=== PATIENT | female | born 1970 | race African-American/Black ===

== ENCOUNTER 2019-12-16 12:13 | Emergency (ER) | payer OTHER ==
[~2019-12-16] VITALS: Ht 167.6 cm; Wt 134.1 kg
[~2019-12-16 12:13] MED LIST: AMOX500T2 PO; FERR-89 PO; LOSA25TA71 PO
[2019-12-16] MEDS ORDERED: KETOROLAC TROMETHAMINE 60 MG/2 ML VIAL IM ONE (13:45)
[2019-12-16 15:19] VITALS: BP 132/81
== END 2019-12-16 15:31 | disposition home or self-care (01) ==
LOC: EMS 12:14
DX: M25.562 Pain in left knee (principal); I10 Essential (primary) hypertension
CPT/HCPCS: 73562; 81025; 96372; 99283; J1885

== ENCOUNTER 2020-10-19 13:24 | Emergency (ER) | payer OTHER ==
[~2020-10-19] VITALS: Ht 167.6 cm; Wt 151.8 kg
[~2020-10-19 13:24] MED LIST changes: +LOSA25TA21 PO; -LOSA25TA71 PO
[2020-10-19] MEDS ORDERED: KETOROLAC TROMETHAMINE 30 MG/ML VIAL IM ONE (15:00)
[2020-10-19 16:19] VITALS: BP 182/96
== END 2020-10-19 16:38 | disposition home or self-care (01) ==
LOC: EMS 13:28
DX: M13.862 Other specified arthritis, left knee (principal); I10 Essential (primary) hypertension
CPT/HCPCS: 73562; 96372; 99283; J1885

== ENCOUNTER 2021-10-03 15:52 | Emergency (ER) | payer OTHER ==
[~2021-10-03] VITALS: Ht 165.1 cm; Wt 136.4 kg
[~2021-10-03 15:52] MED LIST changes: +LOSA-381 PO; -LOSA25TA21 PO
[2021-10-03] MEDS ORDERED: GABA-1216 PO (16:07)
[2021-10-03] MEDS ORDERED: CHOL-35 PO (16:09)
[2021-10-03 17:51] LABS: NEUTROPHILS # (AUTO) 5.1 K/uL (1.8-7.7)
[2021-10-03 17:51] LABS: APPEARANCE,URINE CLEAR (CLEAR); BILIRUBIN,URINE NEGATIVE (NEGATIVE); GLUCOSE, URINE (UA) NEGATIVE (NEGATIVE); KETONES,URINE NEGATIVE (NEGATIVE); LEUKOCYTE ESTERASE ,URINE NEGATIVE (NEGATIVE); NITRATE,URINE NEGATIVE (NEGATIVE); OCCULT BLOOD,URINE NEGATIVE (NEGATIVE); PROTEIN,URINE NEGATIVE (NEGATIVE); SPECIFIC GRAVITIY, URINE 1.021 (1.003-1.030)
[2021-10-03 17:54] LABS: BASOPHILS % (AUTO) 0.7 % (0.0-2.0); EOSINOPHILS % (AUTO) 1.4 % (1.0-6.0); HEMATOCRIT 30.8 % (36-46); HEMOGLOBIN 9.7 g/dL (12.0-16.0); LYMPHOCYTES # (AUTO) 2.4 K/uL (1.0-4.8); LYMPHOCYTES % (AUTO) 29.5 % (22.0-44.0); MEAN CORPUSCULAR HEMOGLOBIN 21.8 pg (26.0-34.0); MEAN CORPUSCULAR HGB CONC 31.4 G/dL (31.0-37.0); MEAN CORPUSCULAR VOLUME 69 fL (80-100); MONOCYTES # (AUTO) 0.5 K/uL (0.1-1.0); MONOCYTES % (AUTO) 5.9 % (2.0-9.0); NEUTROPHILS % (AUTO) 62.5 % (40.0-70.0); RED BLOOD CELL COUNT(AUTO) 4.44 MIL/uL (4.00-5.20); RED CELL DISTRIBUTION WIDTH 32.2 % (11.5-14.5)
[2021-10-03 17:59] LABS: ANION GAP 8 mmol/L (8-16); CALCIUM, TOTAL 9.2 mg/dL (8.8-10.5); CARBON DIOXIDE 31 mmol/L (22-29); CHLORIDE 100 mmol/L (98-107); GLOMERULAR FILTR. RATE CALC > 60 mL/min (>60); GLUCOSE,RANDOM 107 mg/dL (70-110); POTASSIUM 3.7 mmol/L (3.5-5.1); SODIUM SERUM 139 mmol/L (136-145); UREA NITROGEN, BLOOD 9 mg/dL (7-18)
[2021-10-03 18:06] LABS: PLATELET COUNT (AUTO) 393 K/uL (150-450); PLATELET MORPHOLOGY COMMENT GIANT PLTS PRESENT
[2021-10-03 18:07] LABS: ALANINE AMINOTRANSFERASE 16 U/L (12-78); ALBUMIN 3.7 g/dL (3.4-5.0); ALKALINE PHOSPHATASE 67 U/L (46-116); ASPARTATE AMINOTRANSFERASE 12 U/L (15-37); B-TYPE NATRIURETIC PEPTIDE 8 pg/mL (0-100); BILIRUBIN,TOTAL 0.6 mg/dL (0.1-1.0); CREATINE KINASE, TOTAL ONLY 76 U/L (26-192); TOTAL PROTEIN, SERUM 8.4 g/dL (6.4-8.2)
[2021-10-03 19:41] VITALS: BP 168/88
== END 2021-10-03 20:10 | disposition home or self-care (01) ==
LOC: EMS 16:03
DX: F41.9 Anxiety disorder, unspecified (principal); I10 Essential (primary) hypertension; Z79.899 Other long term (current) drug therapy
CPT/HCPCS: 71045; 80053; 81003; 82550; 83880; 84484; 85025; 93005; 99285; 36415-L1; 36415-TC

== ENCOUNTER 2025-03-17 11:37 | Emergency (ER) | payer BC, OTHER ==
[~2025-03-17] VITALS: Ht 162.6 cm; Wt 138.1 kg
[~2025-03-17 11:37] MED LIST changes: -AMOX500T2 PO; +CHOL25TA4 PO; -FERR-89 PO; +FERR325T27 PO; +GABA-1216 PO
[2025-03-17 11:55] VITALS: TEMP 97.9
[2025-03-17] MEDS ORDERED: IBUP-2077 PO (12:07)
[2025-03-17 12:18] LABS: RED BLOOD CELL COUNT(AUTO) 4.31 MIL/uL (4.00-5.20); RED CELL DISTRIBUTION WIDTH 33.2 % (11.5-14.5); WHITE BLOOD COUNT (AUTO) 6.2 K/uL (4.5-11.0)
[2025-03-17 12:23] LABS: CALCIUM, TOTAL 8.6 mg/dL (8.8-10.5); CREATININE 0.96 mg/dL (0.60-1.30); GLOMERULAR FILTR. RATE CALC > 60 mL/min (>60); GLUCOSE,RANDOM 129 mg/dL (70-110); SODIUM SERUM 138 mmol/L (136-145); UREA NITROGEN, BLOOD 9 mg/dL (7-18)
[2025-03-17 12:37] LABS: TROPONIN I-HIGH SENSITIVITY Less Than 4 ng/L (<51)
[2025-03-17 12:40] LABS: PLATELET COUNT (AUTO) 248 K/uL (150-450); RBC MORPHOLOGY COMMENT ABNORMAL RBC MORPH
[2025-03-17] MEDS: KETOROLAC TROMETHAMINE 30 MG/ML VIAL IVP ONE (12:52)
[2025-03-17 13:30] VITALS: BP 138/90; PULSE 86; RESP 1; O2SAT 99
== END 2025-03-17 13:45 | disposition home or self-care (01) ==
LOC: EMS 11:37
DX: R07.89 Other chest pain (principal); I10 Essential (primary) hypertension; M19.90 Unspecified osteoarthritis, unspecified site; M77.30 Calcaneal spur, unspecified foot; G89.29 Other chronic pain; Z98.51 Tubal ligation status; Z79.899 Other long term (current) drug therapy
CPT/HCPCS: 99285; 96374; 71045; 80048; 84484; 85025; 36415; 93005; J1885